=== PATIENT | female | born 1985 | race Caucasian/White ===

== ENCOUNTER 2020-07-27 11:13 | Emergency (ER) | payer OTHER ==
--- NOTE | 2020-07-27 12:41 | EDM.PDOC ---
ED HPI GENERAL MEDICAL PROBLEM - General Chief Complaint: ENT Problem Stated Complaint: ALERGY ISSUE Time Seen by Provider: 07/27/20 12:02 Source of Information: Reports: Patient History Limitations: Reports: No Limitations - History of Present Illness INITIAL COMMENTS - FREE TEXT/NARRATIVE: 35 yo female visiting from [place] presents with worsening allergies. She arrived 2 weeks ago and has had itchy eyes and sinus congestion. It is worsening to involve severe sore throat. She also complains of malaise. Intermittent hives to arms and ABD. Has been taking OTC allergy medication and flonase with some relief. denies n/v/d. no change in appetite. afebrile - Related Data Allergies Allergy/AdvReac Type Severity Reaction Status Date / Time No Known Allergies Allergy Verified 07/27/20 12:01 Home Meds: Home Meds Dextroamphetamine/Amphetamine [Adderall 5 mg Tablet] 5 mg PO DAILY 07/27/20 [ History] Hydrocodone/Acetaminophen [Hydrocodon-Acetaminophen 5-325] 1 tab PO Q6H PRN 07/27/20 [History] LORazepam [Ativan] 1 mg PO ASDIRECTED PRN 07/27/20 [History] Meclizine HCl 50 mg PO ASDIRECTED 07/27/20 [History] Metoprolol Tartrate [Lopressor] 23.5 mg PO DAILY 07/27/20 [History] Sertraline HCl 25 mg PO DAILY 07/27/20 [History] Past Medical History HEENT History: Reports: Impaired Vision Cardiovascular History: Reports: Hypertension Psychiatric History: Reports: Anxiety Social & Family History - Tobacco Use Tobacco Use Status *Q: Never Tobacco User ED ROS ENT - Review of Systems Review Of Systems: See Below Constitutional: Reports: Fatigue. Denies: Fever, Chills HEENT: Reports: Rhinitis, Sinus Problem, Throat Pain, Throat Swelling Respiratory: Reports: Cough. Denies: Shortness of Breath, Wheezing Cardiovascular: Denies: Chest Pain Skin: Reports: Urticaria ED EXAM, ENT - Physical Exam Exam: See Below Exam Limited By: No Limitations General Appearance: Alert, WD/WN, No Apparent Distress Ears: Normal External Exam, Normal Canal, Hearing Grossly Normal, Normal TMs Nose: Nasal Discharge, Nasal Swelling (moderate erythema with boggy edema) Mouth/Throat: Pharyngeal Erythema (tonsils surgically abscent ) Head: Atraumatic, Normocephalic Neck: Normal Inspection, Supple, Non-Tender, Full Range of Motion, Lymphadenopathy (R), Lymphadenopathy (L) Respiratory/Chest: No Respiratory Distress, Lungs Clear, Normal Breath Sounds, No Accessory Muscle Use, Chest Non-Tender. No: Crackles, Rhonchi, Wheezing Cardiovascular: Regular Rate, Rhythm, No Murmur GI/Abdominal: Soft, Non-Tender Skin: Rash (scattered urticaria) Course - Vital Signs Last Recorded V/S: Last Vital Signs Temp 36.0 C L 07/27/20 12:10 Pulse 94 07/27/20 12:10 Resp 16 07/27/20 12:10 BP 136/84 07/27/20 12:10 Pulse Ox 99 07/27/20 12:10 Departure - Departure Time of Disposition: 12:39 Disposition: Home, Self-Care 01 Condition: Good Clinical Impression: Allergic rhinitis Qualifiers: Allergic rhinitis trigger: pollen Allergic rhinitis seasonality: seasonal Qualified Code(s): J30.1 - Allergic rhinitis due to pollen Pharyngitis Qualifiers: Pharyngitis/tonsillitis etiology: unspecified etiology Qualified Code(s): J02.9 - Acute pharyngitis, unspecified - Discharge Information *PRESCRIPTION DRUG MONITORING PROGRAM REVIEWED*: Not Applicable *COPY OF PRESCRIPTION DRUG MONITORING REPORT IN PATIENT GERALDINE: Not Applicable Instructions: Allergic Rhinitis, Adult, [id number] Referrals: PCP,None [Primary Care Provider] - Forms: ED Department Discharge Additional Instructions: prednisone 20 mg tablet follow tapering dosage: 3 tablets for 4 days 2 tablets for 4 days 1 tablet for 4 days 0.5 tablet for 4 days increase fluid intake continue OTC allergy medications Sepsis Event Note (ED) - Evaluation Sepsis Screening Result: No Definite Risk - Focused Exam Vital Signs: Vital Signs Temp Pulse Resp BP Pulse Ox 07/27/20 12:10 36.0 C L 94 16 136/84 99 07/27/20 11:50 36.0 C L 94 16 136/84 99
== END 2020-07-27 12:55 | disposition home or self-care (01) ==
LOC: JP.ED 11:13
DX: J30.1 Allergic rhinitis due to pollen (principal); J02.9 Acute pharyngitis, unspecified; I10 Essential (primary) hypertension; Z79.899 Other long term (current) drug therapy
CPT/HCPCS: 99283